=== PATIENT | female | born 1960 | race American Indian/Alaskan Native ===

== ENCOUNTER 2016-09-16 09:16 | Outpatient (CLI) | payer OTHER ==
--- NOTE | 2016-09-17 09:15 | Echocardiography Report ---
Transthoracic Echocardiogram Indication: ABN RESULT OF OTHER CARDIO STUDY BP: 111/60 HR: 70 Conclusions *MILD LAE *EF 55-60% *TRACE MR TR Findings Procedure Info: The study quality is good. Left Ventricle: The left ventricular chamber size is normal. There is no left ventricular hypertrophy. Global left ventricular systolic function is normal. The estimated ejection fraction is 55-60%. Abnormal left ventricular diastolic function is observed. Abnormal left ventricular diastolic filling is observed, consistent with impaired relaxation. Left Atrium: The left atrium is mildly dilated. Right Ventricle: The right ventricular cavity size is normal. The right ventricular global systolic function is normal.TAPSE = 2.0 cm Right Atrium: The right atrial cavity size is normal. Aortic Valve: The aortic valve is trileaflet. There is no evidence of aortic regurgitation. There is no evidence of aortic stenosis. Mitral Valve: There is mitral annular calcification. The mitral valve leaflets do not appear thickened. There is trace of mitral regurgitation. There is no evidence of mitral stenosis. Tricuspid Valve: The tricuspid valve is not well visualized. There is trace tricuspid regurgitation. No pulmonary hypertension is noted. There is no tricuspid stenosis. Pulmonic Valve: The pulmonic valve is not well visualized. There is trace pulmonic regurgitation. There is no pulmonic stenosis. Pericardium: There is no pericardial effusion. No pleural effusion is present. Measurements Chambers MM Name Value Normal Range IVSd (MM) 0.68 cm (0.6 - 1.1) LVPWd (MM) 0.72 cm (0.6 - 1.1) IVS:LVPW ratio 0.95 ratio - LVIDd (MM) 5.15 cm (3.7 - 5.6) LVIDs (MM) 3.61 cm (2 - 2.8) LV FS (Teichholz) (MM) 29.9 % - LV FS (cube) (MM) 29.9 % - EF Teichholz (MM) 56.9 % - Chambers 2D Name Value Normal Range IVSd (2D) 0.72 cm (0.6 - 1.1) LVPWd 0.8 cm - LVPWd (2D) 0.76 cm (0.6 - 1.1) IVS:LVPW ratio (2D) 0.95 ratio - LVIDd 4.5 cm - LVIDs 3 cm - LVIDd (2D) 4.54 cm (3.7 - 5.6) LVIDs (2D) 3.06 cm (2 - 3.8) LV FS (Teichholz) (2D) 32.6 % - LV FS (cube) (2D) 32.6 % - LV EF (2D) 61 % - EF Teichholz (2D) 61.1 % - LA dimension 3.1 cm - Ao root diameter (2D) 2.9 cm (2 - 3.7) LA dimension (AP) 2D 3.1 cm (1.9 - 4) LA:Ao ratio (2D) 1.07 ratio - Volumes/Mass Name Value Normal Range LA ESV SP 4CH (MOD) 38 ml - LV EDV SP 4CH (MOD) 79 ml - LV ESV SP 4CH (MOD) 35 ml - EF SP 4CH (MOD) 56 % - Diastolic/Systolic Function Name Value Normal Range MV E-wave Vmax 0.87 m/sec - MV deceleration time 256 msec - MV A-wave Vmax 0.69 m/sec - MV E:A ratio 1.3 ratio - LV septal e' Vmax 0.09 m/sec - LV lateral e' Vmax 0.09 m/sec - LV E:e' septal ratio 10 ratio - LV E:e' lateral ratio 9.6 ratio - Aortic Valve Name Value Normal Range AV Vmax 1.5 m/sec - AV peak gradient 9 mmHg - LVOT diameter 1.7 cm - LVOT Vmax 0.95 m/sec - LVOT peak gradient 4 mmHg - JESSIE (continuity Vmax) 1.44 cm2 - Tricuspid Valve Name Value Normal Range TR Vmax 2.47 m/sec - TR peak gradient 24 mmHg - RAP 3 mmHg - RVSP 27 mmHg - Pulmonic Valve/Qp:Qs Name Value Normal Range PV Vmax 0.95 m/sec - PV peak gradient 4 mmHg - PV acceleration time 129 msec -
== END 2016-09-16 09:17 | disposition home or self-care (01) ==
LOC: ECHO 09:16
PROVIDERS: ATTEND Internal Medicine Cardiovascular Disease
DX: R94.39 Abnormal result of other cardiovascular function study (principal)
CPT/HCPCS: 93306

== ENCOUNTER 2018-01-06 10:13 | Emergency (ER) | payer OTHER ==
[2018-01-06 10:20] VITALS: BP 151/82
--- NOTE | 2018-01-06 11:52 | Emergency Department Report ---
- General Chief Complaint: Adult Asthma Stated Complaint: TROUBLE BREATHING/RIGHT SIDE NOSE HURT Time Seen by Provider: 01/06/18 11:39 Source: patient Mode of arrival: Ambulatory Limitations: No Limitations - History of Present Illness Initial Comments: 57-year-old female with a past medical history of asthma and hypertension presents to the Hospital complaining of nasal congestion and irritation and increased wheezing for the last 2 days. Patient also complains of aching pain to her right chest wall related 4/10 in intensity that is worse with movement and palpation. Patient travel to [place] in October denies calf tenderness or unilateral edema. Nebs help helps with wheezing episodes. No complaints of cough, fevers, or facial pressure. Patient feels like her throat is red and having body aches. - Related Data Previous Rx's Medication Instructions Recorded Last Taken Type ALBUTEROL NEB's [Proventil 0.083% 2.5 mg IH TID PRN #30 neb 01/02/14 Unknown Rx NEBS] Albuterol Sulfate [Ventolin HFA] 2 puff IH Q4H PRN #1 hfa.aer.ad 01/03/14 Unknown Rx Nebulizer Accessories [Innospire 1 each MC DAILY #5 each 01/03/14 Unknown Rx Replacement Filter] Albuterol Sulfate [Albuterol 0.63% 0.63 mg IH Q4HR PRN #2 ml 06/29/15 Unknown Rx NEBS] Albuterol Sulfate [Proair 90 mcg IH Q4HR PRN #2 aer.pow.ba 06/29/15 Unknown Rx Respiclick] Dicyclomine [Bentyl] 10 mg PO QID PRN #20 capsule 06/29/15 Unknown Rx Ipratropium [place] [Atrovent Hfa] 12.9 gm IH Q4HR #2 hfa.aer.ad 06/29/15 Unknown Rx Ipratropium [Atrovent NEB] 0.5 mg IH Q4HR #2 ml 06/29/15 Unknown Rx predniSONE [Deltasone] 40 mg PO QDAY #8 tab 06/29/15 Unknown Rx Fluticasone [Flonase] 1 - 2 spray NS QDAY #1 bottle 01/06/18 Unknown Rx Allergies Allergy/AdvReac Type Severity Reaction Status Date / Time aspirin Allergy Nausea Unverified 09/16/16 09:17 ED Review of Systems ROS: Stated complaint: TROUBLE BREATHING/RIGHT SIDE NOSE HURT Other details as noted in HPI Comment: All other systems reviewed and negative ED Past Medical Hx - Past Medical History Previous Medical History?: Yes Hx Hypertension: Yes Hx Asthma: Yes Additional medical history: glaucoma - Surgical History Past Surgical History?: Yes Additional Surgical History: D & C - Social History Smoking Status: Never Smoker Substance Use Type: Alcohol, Non Opiate Pain, Prescribed - Medications Home Medications: Home Medications Medication Instructions Recorded Confirmed Last Taken Type ALBUTEROL NEB's [Proventil 0.083% 2.5 mg IH TID PRN #30 neb 01/02/14 06/29/15 Unknown Rx NEBS] Albuterol Sulfate [Ventolin HFA] 2 puff IH Q4H PRN #1 hfa.aer.ad 01/03/14 Unknown Rx Nebulizer Accessories [Innospire 1 each MC DAILY #5 each 01/03/14 06/29/15 Unknown Rx Replacement Filter] Albuterol Sulfate [Albuterol 0.63% 0.63 mg IH Q4HR PRN #2 ml 06/29/15 Unknown Rx NEBS] Albuterol Sulfate [Proair 90 mcg IH Q4HR PRN #2 aer.pow.ba 06/29/15 Unknown Rx Respiclick] Dicyclomine [Bentyl] 10 mg PO QID PRN #20 capsule 06/29/15 Unknown Rx Ipratropium [place] [Atrovent Hfa] 12.9 gm IH Q4HR #2 hfa.aer.ad 06/29/15 Unknown Rx Ipratropium [Atrovent NEB] 0.5 mg IH Q4HR #2 ml 06/29/15 Unknown Rx predniSONE [Deltasone] 40 mg PO QDAY #8 tab 06/29/15 Unknown Rx Fluticasone [Flonase] 1 - 2 spray NS QDAY #1 bottle 01/06/18 Unknown Rx ED Physical Exam - General Limitations: No Limitations - Other Other exam information: General: No limitations, patient is alert in no acute distress Head exam: Atraumatic, normocephalic Eyes exam: Normal appearance, pupils equal reactive to light, extraocular movements intact ENT: Moist mucous membrane, normal oropharynx, bilateral nasal congestion left greater than right, no sinus tenderness palpation Neck exam: Normal inspection, full range of motion, no meningismus nontender Respiratory exam: Clear to auscultation bilateral, no wheezes, rales, crackles. Reproducible right posterior thoracic and anterior right thoracic chest wall tenderness Cardiovascular: Normal rate and rhythm, normal heart sounds Abdomen: Soft, nondistended, and nontender, with normal bowel sounds, no rebound, or guarding Extremity: Full range of motion normal inspection no deformity, no calf tenderness or edema Back: Normal Inspection, full range of motion, no tenderness Neurologic: Alert, oriented x3, cranial nerves intact, no motor or sensory deficit Psychiatric: normal affect, normal mood Skin: Warm, dry, intact ED Course Vital Signs 01/06/18 10:14 Temperature 98.7 F Pulse Rate 64 Respiratory 22 Rate Blood Pressure 151/82 O2 Sat by Pulse 99 Oximetry ED Medical Decision Making - Medical Decision Making patient presented with nasal congestion. Lungs clear. Vitals unremarkable. Will be treated with Flonase. Patient states she only takes Tylenol for pain. Outpatient follow-up encouraged - Differential Diagnosis nasal congestion, viral URI, sinusitis, bronchitis Critical Care Time: No Critical care attestation.: If time is entered above; I have spent that time in minutes in the direct care of this critically ill patient, excluding procedure time. ED Disposition Clinical Impression: Nasal congestion, Asthma Disposition: - TO HOME OR SELFCARE Is pt being admited?: No Does the pt Need Aspirin: No Condition: Stable Instructions: Asthma (ED), Allergic Rhinitis (ED), Cold Symptoms (ED) Additional Instructions: Take the medication as prescribed. Follow up with the primary care clinic. Return if symptoms worsen. Prescriptions: Fluticasone [Flonase] 1 - 2 spray NS QDAY #1 bottle Referrals: [facility] [Provider Group] - 3-5 Days Time of Disposition: 11:52
== END 2018-01-06 12:05 | disposition home or self-care (01) ==
LOC: ED 10:13
DX: J45.909 Unspecified asthma, uncomplicated (principal); I10 Essential (primary) hypertension; Z88.6 Allergy status to analgesic agent
CPT/HCPCS: 99282

== ENCOUNTER 2022-01-31 06:38 | Inpatient (IN) | payer SELFPAY ==
[2022-01-31] MEDS ORDERED: ASPIRIN 325 MG TAB PO ONE (08:59)
[2022-01-31 09:32] LABS: Basophils # (Auto) 0.1 K/mm3 (0.0-0.1); Basophils % (Auto) 1.1 % (0.0-1.8); Eosinophils % (Auto) 0.5 % (0.0-4.3); Hematocrit 44.6 % (30.3-42.9); Hemoglobin 14.4 gm/dl (10.1-14.3); Lymphocytes # (Auto) 1.6 K/mm3 (1.2-5.4); Lymphocytes % (Auto) 27.1 % (13.4-35.0); Mean Corpuscular HGB Conc 32 % (30-34); Mean Corpuscular Volume 91 fl (79-97); Monocytes # (Auto) 0.5 K/mm3 (0.0-0.8); Platelet Count 181 K/mm3 (140-440); Red Blood Count 4.92 M/mm3 (3.65-5.03); Red Cell Distribution Width 15.3 % (13.2-15.2)
--- NOTE | 2022-01-31 09:38 | XRay Report ---
CHEST 1 VIEW INDICATION / CLINICAL INFORMATION: CHEST PAIN. COMPARISON: 06/29/2015 FINDINGS: SUPPORT DEVICES: None. HEART / MEDIASTINUM: No significant abnormality. LUNGS / PLEURA: Left basilar pleural-parenchymal opacity, somewhat similar compared to reference from 2014 may represent parenchymal scarring or atelectasis. Right lung is clear. No pneumothorax. ADDITIONAL FINDINGS: No significant additional findings. IMPRESSION: 1. No acute findings. 2. Chronic left basilar pleural-parenchymal scarring. Signer Name: Galileo Worrell MD Signed: 01/31/2022 9:33 AM Workstation Name: [id number]
[2022-01-31 09:58] LABS: Alanine Aminotransferase 58 units/L (7-56); Albumin 3.9 g/dL (3.9-5); BUN/Creatinine Ratio 15; Blood Urea Nitrogen 12 mg/dL (7-17); Calcium 8.9 mg/dL (8.4-10.2); Hemolysis Index 5
[2022-01-31] MEDS ORDERED: ASPIRIN 325 MG TAB ONE (15:44)
[2022-01-31] MEDS ORDERED: fentaNYL 100 MCG/2 ML INJ IV ONE ×3 (16:48→21:30)
[2022-01-31] MEDS ORDERED: ONDANSETRON 4 MG/2 ML INJ IV ONE ×3 (16:48→21:30)
[2022-01-31] MEDS ORDERED: SODIUM CHLORIDE 0.9% 1000 ML 1,000 ML IV ONE (16:51)
--- NOTE | 2022-01-31 16:54 | Emergency Department Report ---
HPI - General Chief Complaint: Chest Pain Time Seen by Provider: 01/31/22 16:28 - HPI HPI: Room 35 The patient is a 61-year-old female present with chief complaint of chest pain and abdominal pain. Patient states for the past week she has had pain in in her substernal chest and epigastric region. Patient describes the pain as a aching soreness of her muscles that comes on whenever she exerts. Patient states she has noticed some abdominal swelling and had constipation. Patient admits to some shortness of breath with her chest pain but denies nausea/vomiting. Patient states her last bowel movement occurred this morning and was somewhat loose. Patient currently gives her abdominal pain a score of 8/10. The patient states she is never had a stress test or cardiac catheterization ED Past Medical Hx - Past Medical History Previous Medical History?: Yes Hx Hypertension: Yes (Taken off of medication) Hx Asthma: Yes Hx COPD: Yes Additional medical history: glaucoma - Surgical History Past Surgical History?: Yes Additional Surgical History: D & C - Family History Family history: no significant - Social History Smoking Status: Former Smoker (None for over 20 years) Substance Use Type: None ( denies illicit drug use) - Medications Home Medications: Home Medications Medication Instructions Recorded Confirmed Last Taken Type ALBUTEROL NEB's [Proventil 0.083% 2.5 mg IH TID PRN #30 neb 01/02/14 06/29/15 Unknown Rx NEBS] Albuterol Sulfate [Ventolin HFA] 2 puff IH Q4H PRN #1 hfa.aer.ad 01/03/14 06/29/15 Unknown Rx Nebulizer Accessories [Innospire 1 each MC DAILY #5 each 01/03/14 06/29/15 Unknown Rx Replacement Filter] Albuterol Sulfate [Albuterol 0.63% 0.63 mg IH Q4HR PRN #2 ml 06/29/15 Unknown Rx NEBS] Albuterol Sulfate [Proair 90 mcg IH Q4HR PRN #2 aer.pow.ba 06/29/15 Unknown Rx Respiclick] Dicyclomine [Bentyl] 10 mg PO QID PRN #20 capsule 06/29/15 Unknown Rx Ipratropium [place] [Atrovent Hfa] 12.9 gm IH Q4HR #2 hfa.aer.ad 06/29/15 Unknown Rx Ipratropium [Atrovent NEB] 0.5 mg IH Q4HR #2 ml 06/29/15 Unknown Rx predniSONE [Deltasone] 40 mg PO QDAY #8 tab 06/29/15 Unknown Rx Fluticasone [Flonase] 1 - 2 spray NS QDAY #1 bottle 01/06/18 Unknown Rx ED Review of Systems ROS: Stated complaint: CHEST PAIN/RAIN/ABDOMINAL PAIN Other details as noted in HPI Constitutional: no symptoms reported Eyes: denies: eye pain ENT: denies: throat pain Respiratory: shortness of breath Cardiovascular: chest pain Endocrine: no symptoms reported Gastrointestinal: abdominal pain, constipation. denies: nausea, vomiting Genitourinary: denies: dysuria Musculoskeletal: denies: back pain Neurological: denies: headache Physical Exam - Physical Exam Vital Signs: Vital Signs 01/31/22 01/31/22 06:46 08:55 Temperature 98.0 F Pulse Rate 109 H 106 H Respiratory 18 16 Rate Blood Pressure 128/83 Blood Pressure 125/88 [Right] O2 Sat by Pulse 100 98 Oximetry Physical Exam: GENERAL: The patient is well-developed well-nourished female sitting in chair not appearing to be in acute distress. [] HEENT: Normocephalic. Atraumatic. Extraocular motions are intact. Patient has moist mucous membranes. NECK: Supple. Trachea midline CHEST/LUNGS: Clear to auscultation. There is no respiratory distress noted. HEART/CARDIOVASCULAR: Regular. There is no tachycardia. There is no gallop rub or murmur. ABDOMEN: Abdomen is soft, with tenderness to palpation in the right upper quadrant and midepigastric region. There is no rebound or guarding. Patient has normal bowel sounds. There is no abdominal distention. SKIN: There is no rash. There is no edema. There is no diaphoresis. NEURO: The patient is awake, alert, and oriented. The patient is cooperative. The patient has no focal neurologic deficits. The patient has normal speech. GCS 15 MUSCULOSKELETAL: There is no evidence of acute injury. ED Course Vital Signs 01/31/22 01/31/22 06:46 08:55 Temperature 98.0 F Pulse Rate 109 H 106 H Respiratory 18 16 Rate Blood Pressure 128/83 Blood Pressure 125/88 [Right] O2 Sat by Pulse 100 98 Oximetry - Consultations Consultation #1: 01/31/22 19:49 Cardiology paged 01/31/22 19:55 Case discussed with [employer] cream [employer] associate Dr. Irizarry-make sure patient is on beta- dandy, aspirin nitro and will consult ED Medical Decision Making - Lab Data Result diagrams: 01/31/22 09:05 01/31/22 09:05 Laboratory Tests 01/31/22 01/31/22 01/31/22 09:05 09:05 12:20 WBC 5.8 RBC 4.92 Hgb 14.4 H Hct 44.6 H MCV 91 MCH 29 MCHC 32 RDW 15.3 H Plt Count 181 Lymph % (Auto) 27.1 [place] % (Auto) 9.0 H Eos % (Auto) 0.5 Baso % (Auto) 1.1 Lymph # (Auto) 1.6 [place] # (Auto) 0.5 Eos # (Auto) 0.0 Baso # (Auto) 0.1 Seg Neutrophils % 62.3 Seg Neutrophils # 3.6 Sodium 141 Potassium 4.2 Chloride 104.6 Carbon Dioxide 24 Anion Gap 17 BUN 12 Creatinine 0.8 Estimated GFR > 60 BUN/Creatinine Ratio 15 Glucose 94 Calcium 8.9 Total Bilirubin 1.00 AST 52 H ALT 58 H Alkaline Phosphatase 71 Troponin T < 0.010 < 0.010 Total Protein 6.8 Albumin 3.9 Albumin/Globulin Ratio 1.3 Lipase 01/31/22 01/31/22 15:22 15:22 WBC RBC Hgb Hct MCV MCH MCHC RDW Plt Count Lymph % (Auto) [place] % (Auto) Eos % (Auto) Baso % (Auto) Lymph # (Auto) [place] # (Auto) Eos # (Auto) Baso # (Auto) Seg Neutrophils % Seg Neutrophils # Sodium Potassium Chloride Carbon Dioxide Anion Gap BUN Creatinine Estimated GFR BUN/Creatinine Ratio Glucose Calcium Total Bilirubin AST ALT Alkaline Phosphatase Troponin T < 0.010 Total Protein Albumin Albumin/Globulin Ratio Lipase 24 - EKG Data -: EKG Interpreted by Me EKG shows normal: sinus rhythm Rate: normal - EKG Data When compared to previous EKG there are: changes noted Interpretation: nonspecific ST-T wave christine (New T wave inversions leads V4, V5, V6 when compared to previous EKG dated 06/29/2015), subendocardial ischemia (New ST depression in leads II, 3, aVF when compared to previous EKG dated 06/29/2015) - Radiology Data Radiology results: report reviewed (Chest x-ray, CT abdomen pelvis, CT chest), image reviewed (Chest x-ray, CT abdomen pelvis, CT chest) interpreted by me: Chest x-ray-no definite focal infiltrates, no pneumothorax. Left pleural effusion [address] [address] XRay Report Signed Patient: MADHAV RODAS MR#: [id number] : 1960 Acct:[id number] Age/Sex: 61 / F ADM Date: 01/31/22 Loc: ED Attending Dr: Ordering Physician: VIRGILIO HERNANDEZ MD Date of Service: 01/31/22 Procedure(s): XR chest routine 2V Accession Number(s): [id number] cc: ED MD MARY Fluoro Time In Minutes: CHEST 1 VIEW INDICATION / CLINICAL INFORMATION: CHEST PAIN. COMPARISON: 06/29/2015 FINDINGS: SUPPORT DEVICES: None. HEART / MEDIASTINUM: No significant abnormality. LUNGS / PLEURA: Left basilar pleural-parenchymal opacity, somewhat similar compared to reference from 2014 may represent parenchymal scarring or atelectasis. Right lung is clear. No pneumothorax. ADDITIONAL FINDINGS: No significant additional findings. IMPRESSION: 1. No acute findings. 2. Chronic left basilar pleural-parenchymal scarring. Signer Name: Galileo Worrell MD Signed: 01/31/2022 9:33 AM Workstation Name: [id number] Transcribed By: SB Dictated By: GALILEO WORRELL MD Electronically Authenticated By: GALILEO WORRELL MD Signed Date/Time: 01/31/22932 DD/ 1 TD/TT: [address] [address] Cat Scan Report Signed Patient: MADHAV RODAS MR#: [id number] : 1960 Acct:[id number] Age/Sex: 61 / F ADM Date: 01/31/22 Loc: ED Attending Dr: Ordering Physician: CARLOS STANFORD MD Date of Service: 01/31/22 Procedure(s): CT abdomen pelvis w con Accession Number(s): [id number] cc: CARLOS STANFORD MD CT ABDOMEN AND PELVIS WITH CONTRAST INDICATION / CLINICAL INFORMATION: Epigastric pain. TECHNIQUE: Axial CT images were obtained through the abdomen and pelvis after IV contrast. All CT scans at this location are performed using CT dose reduction for ALARA by means of automated exposure control. COMPARISON: None available. FINDINGS: LOWER CHEST: Small left effusion and parenchymal scarring of the left lower lobe. LIVER: No significant abnormality. GALLBLADDER: No significant abnormality. PANCREAS: No significant abnormality. SPLEEN: No significant abnormality. ADRENALS: No significant abnormality. RIGHT KIDNEY / URETER: No significant abnormality. LEFT KIDNEY / URETER: No significant abnormality. STOMACH / SMALL BOWEL: No significant abnormality. COLON: Diverticulosis without acute inflammation. APPENDIX: No significant abnormality. PERITONEUM: No free fluid, free air or organized collection. LYMPH NODES: No significant adenopathy. AORTA / ARTERIES/ VEINS: Mild atherosclerotic calcification without acute abnormality. URINARY BLADDER: No significant abnormality. REPRODUCTIVE ORGANS: No significant abnormality. ADDITIONAL FINDINGS: None. SKELETAL SYSTEM: No significant abnormality. IMPRESSION: 1. No acute abnormality. 2. Chronic findings as above. Signer Name: Galileo Worrell MD Signed: 01/31/2022 7:26 PM Workstation Name: [id number] Transcribed By: SB Dictated By: GALILEO WORRELL MD Electronically Authenticated By: GALILEO WORRELL MD Signed Date/Time: 01/31/221925 DD/ 23 TD/TT: [address] [address] Cat Scan Report Signed Patient: MADHAV RODAS MR#: [id number] : 1960 Acct:[id number] Age/Sex: 61 / F ADM Date: 01/31/22 Loc: ED Attending Dr: Ordering Physician: CARLOS STANFORD MD Date of Service: 01/31/22 Procedure(s): CT angio chest Accession Number(s): [id number] cc: CARLOS STANFORD MD CTA CHEST WITH CONTRAST INDICATION / CLINICAL INFORMATION: Chest pain. TECHNIQUE: Axial CT images were obtained through the chest after injection of IV contrast. 3 plane MIP and/or 3D reconstructions were produced. All CT scans at this location are performed using CT dose reduction for ALARA by means of automated exposure control. COMPARISON: CTA chest 06/29/2015 FINDINGS: PULMONARY ARTERIES: No pulmonary emboli. THORACIC AORTA: No significant abnormality. HEART: Mildly enlarged. CORONARY ARTERY CALCIFICATION: None. MEDIASTINUM / FLAKO: No significant abnormality. PLEURA: Small bilateral effusions. No pneumothorax. LUNGS: Moderate emphysema. Numerous scattered calcified granulomas throughout the lungs with areas of parenchymal scarring involving the bilateral lung apices and more predominantly within the lingula and left lung base. There may also be a component of pulmonary edema on today's examination. Overall, these findings are fairly similar compared to reference from 2015. ADDITIONAL FINDINGS: None. UPPER ABDOMEN: No acute findings. SKELETAL STRUCTURES: No significant osseous abnormality. IMPRESSION: 1. No CT evidence for pulmonary embolism. 2. Moderate emphysema with small bilateral effusions and mild pulmonary edema. 3. Areas of pleural-parenchymal scarring involving bilateral lungs, more significantly involving the left lung, overall similar compared to reference from 2015. Signer Name: Galileo Worrell MD Signed: 01/31/2022 7:17 PM Workstation Name: [id number] Transcribed By: SB Dictated By: GALILEO WORRELL MD Electronically Authenticated By: GALILEO WORRELL MD Signed Date/Time: 01/31/221916 DD/ 12 TD/TT: - Differential Diagnosis Unstable angina, ACS, PE, constipation, pancreatitis, symptomatic cholelith Critical care attestation.: If time is entered above; I have spent that time in minutes in the direct care of this critically ill patient, excluding procedure time. ED Disposition Clinical Impression: Exertional chest pain, Inferior ST segment depression, T wave inversion in EKG Disposition: ADMITTED INPATIENT Is pt being admited?: Yes Does the pt Need Aspirin: No Condition: Fair Instructions: Nonspecific Chest Pain, Adult Referrals: PRIMARY CARE, [Primary Care Provider] - 3-5 Days Time of Disposition: 19:43 (Care transferred to hospitalist (Dr. Bellamy)) Heart Score - HEART Score History: Highly suspicious EKG: Non-specific Age: 45-65 Risk factors: 1-2 risk factors Troponin: < normal limit HEART Score: 5 - EKG Read Time Time EKG Completed: 18:45 EKG Read Time: 18:45
--- NOTE | 2022-01-31 19:21 | Cat Scan Report ---
CTA CHEST WITH CONTRAST INDICATION / CLINICAL INFORMATION: Chest pain. TECHNIQUE: Axial CT images were obtained through the chest after injection of IV contrast. 3 plane GA P and/or 3D reconstructions were produced. All CT scans at this location are performed using CT dose reduction for ALARA by means of automated exposure control. COMPARISON: CTA chest 06/29/2015 FINDINGS: PULMONARY ARTERIES: No pulmonary emboli. THORACIC AORTA: No significant abnormality. HEART: Mildly enlarged. CORONARY ARTERY CALCIFICATION: None. MEDIASTINUM / FLAKO: No significant abnormality. PLEURA: Small bilateral effusions. No pneumothorax. LUNGS: Moderate emphysema. Numerous scattered calcified granulomas throughout the lungs with areas of parenchymal scarring involving the bilateral lung apices and more predominantly within the lingula a nd left lung base. There may also be a component of pulmonary edema on today's examination. Overall, these findings are fairly similar compared to reference from 2014. ADDITIONAL FINDINGS: None. UPPER ABDOMEN: No acute findings. SKELETAL STRUCTURES: No significant osseous abnormality. IMPRESSION: 1. No CT evidence for pulmonary embolism. 2. Moderate emphysema with small bilateral effusions and mild pulmonary edema. 3. Areas of pleural-parenchymal scarring involving bilateral lungs, more significantly involving the left lung, overall similar compared to reference from 2014. Signer Name: Galileo Worrell MD Signed: 01/31/2022 7:17 PM Workstation Name: [id number]
--- NOTE | 2022-01-31 19:30 | Cat Scan Report ---
CT ABDOMEN AND PELVIS WITH CONTRAST INDICATION / CLINICAL INFORMATION: Epigastric pain. TECHNIQUE: Axial CT images were obtained through the abdomen and pelvis after IV contrast. All CT sc ans at this location are performed using CT dose reduction for ALARA by means of automated exposure c ontrol. COMPARISON: None available. FINDINGS: LOWER CHEST: Small left effusion and parenchymal scarring of the left lower lobe. LIVER: No significant abnormality. GALLBLADDER: No significant abnormality. PANCREAS: No significant abnormality. SPLEEN: No significant abnormality. ADRENALS: No significant abnormality. RIGHT KIDNEY / URETER: No significant abnormality. LEFT KIDNEY / URETER: No significant abnormality. STOMACH / SMALL BOWEL: No significant abnormality. COLON: Diverticulosis without acute inflammation. APPENDIX: No significant abnormality. PERITONEUM: No free fluid, free air or organized collection. LYMPH NODES: No significant adenopathy. AORTA / ARTERIES/ VEINS: Mild atherosclerotic calcification without acute abnormality. URINARY BLADDER: No significant abnormality. REPRODUCTIVE ORGANS: No significant abnormality. ADDITIONAL FINDINGS: None. SKELETAL SYSTEM: No significant abnormality. IMPRESSION: 1. No acute abnormality. 2. Chronic findings as above. Signer Name: Galileo Worrell MD Signed: 01/31/2022 7:26 PM Workstation Name: [id number]
[2022-01-31] MEDS ORDERED: NITROGLYCERIN 2% OINT 1 GM TP ONE (19:33)
[2022-01-31] MEDS ORDERED: CLOPIDOGREL 300 MG TAB PO ONE (19:42)
[2022-01-31] MEDS ORDERED: oxyCODONE /ACETAMINOPHEN 5-325MG TAB PO PRN (19:54)
[2022-01-31] MEDS ORDERED: ACETAMINOPHEN 325 MG TAB PO PRN (19:54)
[2022-01-31] MEDS ORDERED: MORPHINE 2 MG/1 ML INJ IV PRN (19:54)
[2022-01-31] MEDS ORDERED: ALBUTEROL 2.5 MG/3 ML NEBU IH PRN (19:54)
[2022-01-31] MEDS ORDERED: ONDANSETRON 4 MG/2 ML INJ IV PRN (19:54)
[2022-01-31] MEDS ORDERED: DICYCLOMINE 10 MG CAP PO PRN (19:56)
--- NOTE | 2022-01-31 19:57 | History and Physical Report ---
History of Present Illness Chief complaint: My chest has been hurting and my stomach too History of present illness: 61 YO Female with COPD, Asthma presents to ED for evaluation. Patient reports "my chest has been hurting in my stomach too". Patient states that over the past 1 week she has experienced episodic chest pain as well as abdominal pain. Patient states that her chest pain is 4/10, intermittent, associated with shortness of breath, worsened with exertion, associated with nausea and 2 episodes of vomiting. Patient states that her abdominal pain is 8/10, constant, associated with a feeling of abdominal fullness. Patient transported to [facility] via private vehicle for further care and evaluation of the aforementioned symptoms. The patient was seen and evaluated in the emergency department. All lab and imaging studies reviewed. Patient EKG and found to have EKG abnormalities with concomitant angina at rest. Cardiology team consulted in ED. Patient mated to telemetry due to increased risk of worsening symptoms after medical stabilization. Patient denies fever, chills, palpitation, productive cough, skin rash, recent ill contacts, unilateral leg swelling, calf pain individual/family history of DVT/PE/bleeding/blood clotting disorders, or known exposure to COVID-19. No prior admission for review. All medication listed at time of admission has been reconciled. Advanced care planning conducted in ED. Past History Past Medical History: COPD, other (See HPI) Past Surgical History: Other (D&C) Social history: single. denies: smoking, alcohol abuse, prescription drug abuse Medications and Allergies Allergies Allergy/AdvReac Type Severity Reaction Status Date / Time aspirin Allergy Nausea Verified 01/31/22 15:34 Home Medications Medication Instructions Recorded Confirmed Last Taken Type Advair Hfa 45-21 Mcg Inhaler 01/31/22 01/31/22 History Latanoprost 0.005% 1 drop 01/31/22 01/30/22 History Tiotropium Marydel [Spiriva] 2 puff PO DAILY 01/31/22 01/31/22 01/31/22 History Active Meds: Active Medications Acetaminophen (Acetaminophen 325 Mg Tab) 650 mg PO Q4H PRN PRN Reason: Pain MILD(1-3)/Fever >100.5/SQUIRES Albuterol (Albuterol 2.5 Mg/3 Ml Nebu) 2.5 mg IH Q4HRT PRN PRN Reason: Shortness Of Breath Dicyclomine HCl (Dicyclomine 10 Mg Cap) 10 mg PO QID PRN PRN Reason: PAIN Famotidine (Famotidine 10 Mg Tab) 10 mg PO BID SARWAT Morphine Sulfate (Morphine 4 Mg/1 Ml Inj) 2 mg IV Q4H PRN PRN Reason: Pain , Severe (7-10) Ondansetron HCl (Ondansetron 4 Mg/2 Ml Inj) 4 mg IV Q8H PRN PRN Reason: Nausea And Vomiting Oxycodone/Acetaminophen (Oxycodone /Acetaminophen 5-325mg Tab) 1 tab PO Q6H PRN PRN Reason: Pain, Moderate (4-6) Sodium Chloride (Sodium Chloride 0.9% 10 Ml Flush Syringe) 10 ml IV BID SARWAT Sodium Chloride (Sodium Chloride 0.9% 10 Ml Flush Syringe) 10 ml IV PRN PRN PRN Reason: LINE FLUSH Review of Systems Constitutional: no weight loss, no fever Ears, nose, mouth and throat: no ear discharge, no tinnitis, no nose pain, no nasal congestion Breasts: no change in shape, no swelling, no mass Cardiovascular: chest pain, shortness of breath Respiratory: no cough, no excessive sputum, no hemoptysis Gastrointestinal: abdominal pain, nausea, vomiting, no constipation, no change in bowel habits, no hematemesis, no BRBPR, no melena, no hematochezia, no early satiety Genitourinary Female: no pelvic pain, no flank pain, no dysuria, no urinary frequency, no urgency Rectal: no pain, no incontinence, no bleeding Musculoskeletal: no neck stiffness, no arm numbness/tingling, no low back pain, no shooting leg pain Integumentary: no rash, no pruritis, no redness, no sores, no wounds Neurological: no head injury, no paralysis, no parathesias, no tingling, no seizures Psychiatric: no anxiety, no memory loss, no insomnia, no change in appetite, no change in libido Endocrine: no cold intolerance, no polydipsia, no nocturia, no excessive sweating Hematologic/Lymphatic: no easy bruising, no easy bleeding Exam - Constitutional Vitals: Temp Pulse Resp BP Pulse Ox 98 F 109 H 18 133/78 99 01/31/22 19:46 01/31/22 19:46 01/31/22 19:46 01/31/22 19:46 01/31/22 19:46 General appearance: Present: mild distress - EENT Eyes: Present: PERRL ENT: hearing intact, clear oral mucosa - Neck Neck: Present: supple, normal ROM - Respiratory Respiratory effort: normal Respiratory: bilateral: CTA - Cardiovascular Heart Sounds: Present: S1 & S2. Absent: rub, click - Extremities Extremities: pulses symmetrical, No edema Peripheral Pulses: within normal limits - Abdominal General gastrointestinal: Present: soft, non-tender, non-distended, normal bowel sounds Female genitourinary: Present: normal - Integumentary Integumentary: Present: clear, warm, dry - Musculoskeletal Musculoskeletal: gait normal, strength equal bilaterally - Psychiatric Psychiatric: appropriate mood/affect, intact judgment & insight - Neurologic Neurologic: CNII-XII intact, moves all extremities HEART Score - HEART Score EKG: Non-specific Age: 45-65 Risk factors: 1-2 risk factors Troponin: Troponin T < 0.010 ng/mL (0.00-0.029) 01/31/22 15:22 Troponin: < normal limit Results - Labs CBC & Chem 7: 01/31/22 09:05 01/31/22 09:05 Labs: Abnormal lab results 01/31/22 01/31/22 Range/Units 09:05 09:05 Hgb 14.4 H (10.1-14.3) gm/dl Hct 44.6 H (30.3-42.9) % RDW 15.3 H (13.2-15.2) % [place] % (Auto) 9.0 H (0.0-7.3) % AST 52 H (5-40) units/L ALT 58 H (7-56) units/L Assessment and Plan - Patient Problems (1) Angina at rest Current Visit: Yes Status: Acute Plan to address problem: ACS protocol: Serial cardiac enzymes, EKG, telemetry monitoring, cardiology team consulted in ED, further care and evaluation as per cardiology team (2) EKG abnormalities Current Visit: Yes Status: Acute Plan to address problem: Telemetry monitoring, cardiology team consulted, ACS protocol. (3) Advance care planning Current Visit: Yes Status: Acute (4) COPD (chronic obstructive pulmonary disease) Current Visit: Yes Status: Acute (5) GERD (gastroesophageal reflux disease) Current Visit: Yes Status: Acute Qualifiers: Esophagitis presence: without esophagitis Qualified Code(s): K21.9 - Gastro-esophageal reflux disease without esophagitis Plan to address problem: PPI therapy, supportive care. Outpatient GI follow-up (6) DVT prophylaxis Current Visit: Yes Status: Acute Plan to address problem: SCD to bilateral lower extremities while in bed (7) Advance care planning Current Visit: Yes Status: Acute Plan to address problem: Disease education data, care plan discussed, diagnoses discussed, prognosis discussed, patient is full code. Patient acknowledges understanding and agreement with care plan, +30 minutes. (8) Preventative health care Current Visit: Yes Status: Acute Plan to address problem: Patient counseled regarding risk factor reduction, balanced diet, outpatient follow-up with primary care physician for all age and risk factor appropriate screening test.
[2022-02-01] MEDS: FAMOTIDINE 10 MG TAB PO SCH ×2 (01:25→09:27)
[2022-02-01 04:41] LABS: Blood Urea Nitrogen 12 mg/dL (7-17); Calcium 8.4 mg/dL (8.4-10.2); Hemolysis Index 15
[2022-02-01 04:42] LABS: BUN/Creatinine Ratio 17
[2022-02-01] MEDS ORDERED: METOPROLOL TARTRATE 25 MG TAB PO SCH (10:00)
[2022-02-01] MEDS ORDERED: TIOTROPIUM 18 MCG CAP INHALATION IH SCH (10:00)
[2022-02-01 10:24] VITALS: BP 105/57
--- NOTE | 2022-02-01 10:37 | Discharge Summary ---
Providers - Providers Date of Admission: 01/31/22 19:54 Date of discharge: 02/01/22 Attending physician: CHRIS OJE MD 01/31/22 19:54 Consult to Physician [CONS] Urgent Comment: Consulting Provider: DUARTE IRIZARRY Physician Instructions: Reason For Exam: Chest pain Primary care physician: [facility]OR Hospitalization Reason for admission: ACS rule out Condition: Fair Hospital course: 61-year-old female history of COPD who presented with chest and abdominal pain. CT angiogram of the chest was negative for pulmonary embolism and did show emphysema. CT of the abdomen and pelvis showed no acute abnormality. Troponin was negative. Patient was evaluated by cardiology. Her symptoms resolved and she was discharged with instructions to follow-up with cardiology outpatient for possible stress test. Disposition: 01 HOME / SELF CARE / HOMELESS Final Discharge Diagnosis (Prints w/discharge instructions): Atypical chest pain. EKG abnormalities. History of COPD. History of GERD Time spent for discharge: 20 minutes Core Measure Documentation - Palliative Care Palliative Care/ Comfort Measures: Not Applicable - Core Measures Any of the following diagnoses?: none Exam - Physical Exam Narrative exam: GENERAL: Well-developed well-nourished. In no acute distress. HEENT: Normocephalic. Atraumatic. NECK: Supple. CHEST/LUNGS: CTAB on room air HEART/CARDIOVASCULAR: RRR. No murmur, rubs or gallops appreciated. ABDOMEN: +BS. NT/ND. SKIN: No rashes noted. NEURO: No focal motor deficit. Follows all commands and is ambulatory. MUSCULOSKELETAL: No joint effusion EXTREMITIES: No cyanosis, clubbing or edema. PSYCH: Cooperative. - Constitutional Vitals: Temp Pulse Resp BP Pulse Ox 97.8 F 87 20 105/57 95 02/01/22 10:14 02/01/22 10:14 02/01/22 10:14 02/01/22 10:14 02/01/22 10:14 Plan Activity: advance as tolerated Diet: low salt Care Plan Goals: Please follow-up with your primary care provider. All imaging and laboratory findings were negative. If your symptoms return, please seek evaluation in the ED. Please follow-up with Dr. Irizarry in Cardiology clinic within the next 2 weeks. Follow up with: MENDEZ NOEL MD [Primary Care Provider] - 3-5 Days DUARTE IRIZARRY MD [Staff Physician] - 14 Days Prescriptions: Metoprolol [Lopressor TAB] 12.5 mg PO DAILY 30 Days #15 tablet oxyCODONE /ACETAMINOPHEN [Percocet 5/325 mg] 1 tab PO Q6H PRN 3 Days #12 tablet PRN Reason: Pain, Moderate (4-6)
--- NOTE | 2022-02-01 10:51 | Consultation ---
History of Present Illness Consult date: 02/01/22 Requesting physician: CARLOS STANFORD Consult reason: chest pain History of present illness: 61-year-old female with history of COPD on bronchodilator treatment. Baseline is able to walk 10 to 15 minutes without issue. But was having the last 1 day abdominal pain and chest pain. EKG is sinus rhythm with LVH with T inversion in inferior lateral leads. Negative troponin. Patient denies any chest pain at rest. Symptomology comes and goes. No nausea no vomiting . No syncope no palpitations. Patient wants to go home. Advised patient to ambulate. Suggested patient to monitor symptomology with ambulation Past History Past Medical History: COPD, other (See HPI) Past Surgical History: Other (D&C) Social history: single. denies: smoking, alcohol abuse, prescription drug abuse Medications and Allergies Allergies Allergy/AdvReac Type Severity Reaction Status Date / Time aspirin Allergy Nausea Verified 01/31/22 15:34 Home Medications Medication Instructions Recorded Confirmed Last Taken Type Advair Hfa 45-21 Mcg Inhaler 01/31/22 01/31/22 History Latanoprost 0.005% 1 drop 01/31/22 01/30/22 History Tiotropium [place] [Spiriva] 2 puff PO DAILY 01/31/22 01/31/22 01/31/22 History Metoprolol [Lopressor TAB] 12.5 mg PO DAILY 30 Days #15 tablet 02/01/22 Unknown Rx oxyCODONE /ACETAMINOPHEN [Percocet 1 tab PO Q6H PRN 3 Days #12 tablet 02/01/22 Unknown Rx 5/325 mg] Active Meds: Active Medications Acetaminophen (Acetaminophen 325 Mg Tab) 650 mg PO Q4H PRN PRN Reason: Pain MILD(1-3)/Fever >100.5/SQUIRES Albuterol (Albuterol 2.5 Mg/3 Ml Nebu) 2.5 mg IH Q4HRT PRN PRN Reason: Shortness Of Breath Last Admin: 01/31/22 22:48 Dose: 2.5 mg Dicyclomine HCl (Dicyclomine 10 Mg Cap) 10 mg PO QID PRN PRN Reason: PAIN (STOMACH) Famotidine (Famotidine 10 Mg Tab) 10 mg PO BID SARWAT Last Admin: 02/01/22 09:27 Dose: 10 mg Metoprolol Tartrate (Metoprolol Tartrate 25 Mg Tab) 12.5 mg PO DAILY [facility] Last Admin: 02/01/22 09:27 Dose: 12.5 mg Morphine Sulfate (Morphine 2 Mg/1 Ml Inj) 2 mg IV Q4H PRN PRN Reason: Pain , Severe (7-10) Ondansetron HCl (Ondansetron 4 Mg/2 Ml Inj) 4 mg IV Q8H PRN PRN Reason: Nausea And Vomiting Oxycodone/Acetaminophen (Oxycodone /Acetaminophen 5-325mg Tab) 1 tab PO Q6H PRN PRN Reason: Pain, Moderate (4-6) Sodium Chloride (Sodium Chloride 0.9% 10 Ml Flush Syringe) 10 ml IV BID [facility] Last Admin: 02/01/22 09:28 Dose: 10 ml Sodium Chloride (Sodium Chloride 0.9% 10 Ml Flush Syringe) 10 ml IV PRN PRN PRN Reason: LINE FLUSH Tiotropium Fallon (Tiotropium 18 Mcg Cap Inhalation) 2 puff IH DAILY [facility] Review of Systems All systems: negative Physical Examination Vital Signs Temp Pulse Resp BP Pulse Ox 98.0 F 109 H 18 128/83 100 01/31/22 06:46 01/31/22 06:46 01/31/22 06:46 01/31/22 06:46 01/31/22 06:46 General appearance: no acute distress, well-nourished HEENT: Positive: PERRL, Mucus Membranes Moist Neck: Positive: neck supple, trachea midline Cardiac: Positive: Reg Rate and Rhythm, S1/S2. Negative: Audible Murmur Lungs: Positive: clear to auscultation, Normal Breath Sounds Neuro: Positive: Grossly Intact Abdomen: Positive: Soft, Active Bowel Sounds. Negative: Tender, Distended Female genitourinary: deferred Skin: Positive: Clear Incision: Cardiac Cath Site Musculoskeletal: No Pain, Normal Range of Motion Extremities: Present: normal. Absent: edema Results 01/31/22 09:05 02/01/22 04:00 Comprehensive Metabolic Panel 02/01/22 Range/Units 04:00 Sodium 139 (137-145) mmol/L Potassium 4.5 (3.6-5.0) mmol/L Chloride 104.7 (98-107) mmol/L Carbon Dioxide 23 (22-30) mmol/L BUN 12 (7-17) mg/dL Creatinine 0.7 (0.6-1.2) mg/dL Glucose 81 (65-100) mg/dL Calcium 8.4 (8.4-10.2) mg/dL EKG interpretations - Telemetry EKG Rhythm: Sinus Rhythm (Sinus rhythm with LVH with T wave version inferior lateral leads) Assessment and Plan 61-year-old female with history of COPD has abnormal EKG T wave version inferior lateral leads. Patient's heart score is 3. Is on beta-dandy therapy. Has a questionable side effects with aspirin. Suggested to patient for treadmill nuclear stress test in a.m. Patient wants to go home. Advised patient monitor symptomology and let us know. Advised patient to move around and walk in the hallways. - Patient Problems (1) COPD (chronic obstructive pulmonary disease) Current Visit: Yes Status: Chronic Qualifiers: COPD type: emphysema Emphysema type: unspecified Qualified Code(s): J43.9 - Emphysema, unspecified (2) EKG abnormalities Current Visit: Yes Status: Acute (3) Exertional chest pain Current Visit: Yes Status: Acute (4) GERD (gastroesophageal reflux disease) Current Visit: Yes Status: Acute Qualifiers: Esophagitis presence: without esophagitis Qualified Code(s): K21.9 - Gastro-esophageal reflux disease without esophagitis
--- NOTE | 2022-02-01 21:30 | Electrocardiograph Report ---
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
--- NOTE | 2022-02-01 21:43 | Electrocardiograph Report ---
[facility] Test Date: 2022-02-01 Test Time: 07:20:49 Pat Name: MADHAV RODAS Department: Room: A484 1 Gender: F Benefit Director: LENNY : 1960 Requested By: CARLOS STANFORD Order Number: [id number] Reading MD: Edson Markham Measurements Intervals [place] Rate: 92 P: 65 MT: 128 QRS: 69 QRSD: 102 T: 253 QT: 401 QTc: 495 Interpretive Statements Sinus rhythm Left ventricle hypertrophy with repolarization abnormalities of LVH Compared to ECG 01/31/2022 06:45:36 No significant change Electronically Signed On 02-01-2022 21:43:00 EDT by Edson Markham
--- NOTE | 2022-02-01 21:46 | Electrocardiograph Report ---
[facility] Test Date: 2022-02-01 Test Time: 09:53:21 Pat Name: MADHAV RODAS Department: Room: A484 1 Gender: F Infectious Diseases Physician: LENNY : 1960 Requested By: CARLOS STANFORD Order Number: [id number] Reading MD: Edson Markham Measurements Intervals [place] Rate: 92 P: 69 LA: 137 QRS: 38 QRSD: 102 T: 235 QT: 411 QTc: 511 Interpretive Statements Sinus rhythm Left ventricle hypertrophy with repolarization abnormalities of LVH Compared to ECG 02/01/2022 07:20:49 No significant change Electronically Signed On 02-01-2022 21:46:05 EDT by Esdon Markham
== END 2022-02-01 15:00 | disposition home or self-care (01) | DRG 313 ==
LOC: ED 06:38 → 4A 19:54
PROVIDERS: ADMIT Internal Medicine; ATTEND Student in an Organized Health Care Education/Training Program
DX: R07.89 Other chest pain (principal); I20.8 Other forms of angina pectoris; I10 Essential (primary) hypertension; J45.909 Unspecified asthma, uncomplicated; K21.9 Gastro-esophageal reflux disease without esophagitis; J44.9 Chronic obstructive pulmonary disease, unspecified; Z87.891 Personal history of nicotine dependence
CPT/HCPCS: 36415; 71046; 71275; 74177; 80048; 80053; 83690; 84484; 85025; 93005; G0378; J2405; J3010; J7030; Q9967